=== PATIENT | male | born 1965 | race Two or more races ===

== ENCOUNTER 2021-03-12 02:36 | Emergency (ER) | payer SELFPAY ==
[~2021-03-12] VITALS: Ht 165.1 cm; Wt 66.0 kg
[2021-03-12 02:54] VITALS: BP 152/82
[2021-03-12] MEDS ORDERED: MORPHINE SULFATE 10 MG/ML CPJ IM ONE (03:00)
[2021-03-12] MEDS ORDERED: ONDANSETRON 4MG ODT PO ONE (03:00)
== END 2021-03-12 05:24 | disposition left against medical advice (07) ==
LOC: ER 02:36
DX: R10.9 Unspecified abdominal pain (principal); R11.2 Nausea with vomiting, unspecified; Z87.11 Personal history of peptic ulcer disease
CPT/HCPCS: 99281